=== PATIENT | female | born 1985 | race Two or more races ===

== ENCOUNTER 2018-06-03 02:10 | Outpatient (CLI) | payer OTHER, MEDICAID ==
[~2018-06-03 02:10] MED LIST: ENOX40SY7 SQ; FERGLU300T PO; METF500T7 PO; WARF5TAB PO
== END 2018-06-03 23:59 | disposition home or self-care (01) ==
LOC: DIABETIC 02:10
PROVIDERS: ATTEND Specialist
DX: E11.65 Type 2 diabetes mellitus with hyperglycemia (principal)
CPT/HCPCS: G0108

== ENCOUNTER 2020-08-30 06:35 | Emergency (ER) | payer BC, MEDICAID ==
[~2020-08-30] VITALS: Ht 157.5 cm; Wt 107.3 kg
[~2020-08-30 06:35] MED LIST changes: +METF-900 PO; -METF500T7 PO; -WARF5TAB PO; +WARF5TAB2 PO
[2020-08-30] MEDS ORDERED: normal saline 1000ml 1,000 ML IV ONE (06:55)
[2020-08-30 07:14] LABS: URINE HCG NEGATIVE (NEG)
[2020-08-30 07:29] LABS: ALANINE AMINOTRANSFERASE 22 U/L (12-78); ALBUMIN 3.8 G/DL (3.4-5.0); ALBUMIN/GLOBULIN RATIO 0.9 (1.1-1.5); ALKALINE PHOSPHATASE 64 IU/L (46-116); ANION GAP 15 (8-16); ASPARTATE AMINO TRANSFERASE 14 U/L (10-37); BILIRUBIN,TOTAL 0.6 MG/DL (0.1-1.0); BLOOD UREA NITROGEN 12 MG/DL (7-18); BUN/CREATININE RATIO 14.3 (6.6-38.0); CALCIUM 8.6 MG/DL (8.5-10.1); CHLORIDE 105 MMOL/L (99-107); CREATININE 0.84 MG/DL (0.40-0.90); GLUCOSE 150 MG/DL (70-104); LIPASE 94 U/L (73-393); POTASSIUM 3.6 MMOL/L (3.5-5.1); SODIUM 140 MMOL/L (135-145); TOTAL CARBON DIOXIDE 20.2 MMOL/L (24-32); TOTAL PROTEIN 8.2 G/DL (6.4-8.2); eGFR 78 ML/MIN
[2020-08-30] MEDS ORDERED: ondansetron/PF 4mg/2ml inj IV ONE (07:40)
[2020-08-30 08:48] VITALS: BP 138/87
[2020-08-30] MEDS ORDERED: ONDA4TAB12 PO (09:03)
== END 2020-08-30 09:24 | disposition home or self-care (01) ==
LOC: ER 06:36
DX: R11.2 Nausea with vomiting, unspecified (principal); R19.7 Diarrhea, unspecified; E11.9 Type 2 diabetes mellitus without complications; Z56.0 Unemployment, unspecified; Z88.8 Allergy status to other drugs, medicaments and biological substances; Z79.899 Other long term (current) drug therapy
CPT/HCPCS: 36415; 80053; 81025; 83690; 96361; 96374; 99283; J2405; J7030